=== PATIENT | male | born 1945 | race Caucasian/White ===

== ENCOUNTER → 2016-11-05 | Outpatient (CLI) | payer MEDICARE ==
[~2016-11-05] MED LIST: FOSAMAX70 MG PO; LODINE400 MG PO; LOPRESSOR25 MG PO; METHYLPREDNISOLO4 MG PO
== END | disposition disaster alternative care site (69) ==
LOC: GOPD 11-02
PROC: 3E0R33Z Introduction of Anti-inflammatory into Spinal Canal, Percutaneous Approach (ICD-10-PCS; principal; 2016-11-05)
PROC: 3E0R3BZ Introduction of Anesthetic Agent into Spinal Canal, Percutaneous Approach (ICD-10-PCS; 2016-11-05)
DX: M48.06 Spinal stenosis, lumbar region (principal); G89.29 Other chronic pain; M54.9 Dorsalgia, unspecified
CPT/HCPCS: J1040